=== PATIENT | male | born 1970 | race Caucasian/White ===

== ENCOUNTER 2021-11-14 08:51 | Emergency (ER) | payer OTHER ==
[2021-11-14 08:57] VITALS: BP 120/78; PULSE 58; TEMP 97.8; BMI 22.9
[2021-11-14] MEDS ORDERED: TETRACAINE 0.5% OPHTH SOLN 2 ML BOTTLE ONE (09:04)
[2021-11-14] MEDS ORDERED: FLUORESCEIN NA 1 EA STRIP ONE (09:04)
== END 2021-11-14 09:45 | disposition home or self-care (01) ==
LOC: JERFT 08:51
DX: T15.12XA Foreign body in conjunctival sac, left eye, initial encounter (principal)
CPT/HCPCS: 99283-25

== ENCOUNTER 2022-04-10 10:06 | Inpatient (IN) | payer OTHER ==
[2022-04-10 11:24] LABS: BASO % 0.1 % (0-2.0); HEMATOCRIT 27.4 % (35.4-49); HEMOGLOBIN 9.6 GM/dL (11.7-16.9); LYMPH % 6.9 % (8-40); MEAN CELL VOLUME 85.9 fl (80-96); MEAN PLT VOLUME 7.5 fl (7.5-11.1); MONO % 3.2 % (3.8-10.2); NEUT % 89.8 % (42.8-82.8); PLATELET COUNT 331 10^3/uL (134-434); RBC 3.19 M/mm3 (4.00-5.60); WHITE BLOOD COUNT 13.5 K/mm3 (4.0-10.0)
[2022-04-10 11:30] LABS: INR 1.1 (0.83-1.09); PROTHROMBIN TIME (PATIENT) 12.7 SEC (9.7-13.0)
[2022-04-10 11:33] LABS: ACTIVATED PTT 24.6 SECONDS (25.2-36.5)
[2022-04-10] MEDS ORDERED: methaDONE HCL 10 MG TABLET (FOR DETOX USE ONLY) PO ONE (11:36)
[2022-04-10 11:56] LABS: ALBUMIN 3.3 g/dl (3.4-5.0); BLOOD UREA NITROGEN 29.5 mg/dL (7-18); CALCIUM 8.9 mg/dL (8.5-10.1); MAGNESIUM 2.2 mg/dL (1.8-2.4)
[2022-04-10 11:59] LABS: CREATININE 0.7 mg/dL (0.55-1.3)
[2022-04-10] MEDS ORDERED: methaDONE HCL 10 MG TABLET ONE (12:00)
[2022-04-10 12:01] LABS: BILIRUBIN,TOTAL 0.8 mg/dL (0.2-1); TOT PROT 6.3 g/dl (6.4-8.2)
[2022-04-10 12:04] LABS: LACTIC ACID 2.5 mmol/L (0.4-2.0)
[2022-04-10] MEDS ORDERED: PANTOPRAZOLE 40 MG TABLET PO ONE ×2 (14:03→14:20)
[2022-04-10] MEDS ORDERED: SODIUM CHLORIDE 0.9% 500 ML INFUS.BAG IV ONE (14:05)
[2022-04-10] MEDS ORDERED: ERYTHROMYCIN *INJECTION* 500 MG VIAL IVPB STA ×2 (16:24→16:48)
[2022-04-10] MEDS ORDERED: PANTOPRAZOLE SODIUM 80 MG in SODIUM CHLORIDE 100 ML IVPB SCH (16:30)
[2022-04-10] MEDS: DEXTROSE 5%-NORMAL SALINE 1,000 ML IV SCH (17:11)
[2022-04-10] MEDS ORDERED: PANTOPRAZOLE SODIUM 160 MG in SODIUM CHLORIDE 290 ML IVPB SCH (17:30)
[2022-04-10] MEDS ORDERED: NALOXONE HCL 0.4 MG/ML VIAL IVPUSH ONE (21:39)
[2022-04-10] MEDS ORDERED: PANTOPRAZOLE SODIUM 40 MG VIAL IVPUSH SCH (22:00)
[2022-04-10 23:45] LABS: BASO % 0.3 % (0-2.0); EOS % 0.7 % (0-4.5); HEMATOCRIT 21.4 % (35.4-49); HEMOGLOBIN 7.4 GM/dL (11.7-16.9); LYMPH % 16.7 % (8-40); MCH 29.8 pg (25.7-33.7); MCHC 34.7 g/dl (32.0-35.9); MEAN PLT VOLUME 7.4 fl (7.5-11.1); MONO % 7.3 % (3.8-10.2); PH,URINE 5.5 (5.0-8.0); PLATELET COUNT 251 10^3/uL (134-434); RBC 2.49 M/mm3 (4.00-5.60); RDW 13.6 % (11.9-15.9); URINE APPEARANCE CLEAR; URINE BILIRUBIN NEGATIVE (NEGATIVE); URINE COLOR YELLOW; URINE GLUCOSE (UA) NEGATIVE (NEGATIVE); URINE KETONE NEGATIVE (NEGATIVE); URINE LEUK ESTERASE NEGATIVE (NEGATIVE); URINE NITRITE NEGATIVE (NEGATIVE); URINE PROTEIN NEGATIVE (NEGATIVE); URINE UROBILINOGEN 0.2 mg/dL (0.2-1.0); WHITE BLOOD COUNT 11.8 K/mm3 (4.0-10.0)
[2022-04-11 04:08] VITALS: BMI 20.2
[2022-04-11] MEDS: DEXTROSE 5%-NORMAL SALINE 1,000 ML IV SCH ×2 (05:12→15:15)
[2022-04-11] MEDS ORDERED: methaDONE HCL 10 MG TABLET PO SCH (06:00)
[2022-04-11 10:01] LABS: BASO % 0.6 % (0-2.0); LYMPH % 15.6 % (8-40); MCH 30.5 pg (25.7-33.7); MCHC 35.2 g/dl (32.0-35.9); MEAN CELL VOLUME 86.8 fl (80-96); MEAN PLT VOLUME 7.8 fl (7.5-11.1); MONO % 5.4 % (3.8-10.2); NEUT % 77.4 % (42.8-82.8); PLATELET COUNT 210 10^3/uL (134-434); RBC 2.31 M/mm3 (4.00-5.60); RDW 13.3 % (11.9-15.9); WHITE BLOOD COUNT 7.8 K/mm3 (4.0-10.0)
[2022-04-11 10:07] LABS: INR 1.1 (0.83-1.09); PROTHROMBIN TIME (PATIENT) 12.7 SEC (9.7-13.0)
[2022-04-11 10:10] LABS: ACTIVATED PTT 23.8 SECONDS (25.2-36.5)
[2022-04-11 10:23] LABS: CALCIUM 8.2 mg/dL (8.5-10.1)
[2022-04-11 10:24] LABS: ALBUMIN 2.9 g/dl (3.4-5.0); MAGNESIUM 2.2 mg/dL (1.8-2.4)
[2022-04-11 10:27] LABS: CREATININE 0.6 mg/dL (0.55-1.3); PHOSPHOROUS 2.5 mg/dL (2.5-4.9)
[2022-04-11 10:29] LABS: BILIRUBIN,TOTAL 0.7 mg/dL (0.2-1); TOT PROT 5.3 g/dl (6.4-8.2)
[2022-04-11 17:14] LABS: HEMATOCRIT 20.2 % (35.4-49); MCH 29.7 pg (25.7-33.7); MCHC 34.7 g/dl (32.0-35.9); MEAN CELL VOLUME 85.7 fl (80-96); MEAN PLT VOLUME 7.6 fl (7.5-11.1); PLATELET COUNT 177 10^3/uL (134-434); RBC 2.36 M/mm3 (4.00-5.60); RDW 14.2 % (11.9-15.9); WHITE BLOOD COUNT 6.6 K/mm3 (4.0-10.0)
[2022-04-11] MEDS: PANTOPRAZOLE 40 MG TABLET PO SCH (22:02)
[2022-04-12 08:37] LABS: BASO % 1.1 % (0-2.0); EOS % 2.4 % (0-4.5); HEMATOCRIT 24.2 % (35.4-49); HEMOGLOBIN 8.6 GM/dL (11.7-16.9); LYMPH % 22.5 % (8-40); MCH 30.2 pg (25.7-33.7); MCHC 35.4 g/dl (32.0-35.9); MEAN CELL VOLUME 85.2 fl (80-96); MEAN PLT VOLUME 7.9 fl (7.5-11.1); MONO % 7.6 % (3.8-10.2); NEUT % 66.4 % (42.8-82.8); PLATELET COUNT 171 10^3/uL (134-434); RBC 2.83 M/mm3 (4.00-5.60); RDW 13.8 % (11.9-15.9); WHITE BLOOD COUNT 4.8 K/mm3 (4.0-10.0)
[2022-04-12 08:51] LABS: ALBUMIN 2.7 g/dl (3.4-5.0); CALCIUM 8.1 mg/dL (8.5-10.1)
[2022-04-12 08:52] LABS: BLOOD UREA NITROGEN 8.8 mg/dL (7-18)
[2022-04-12 08:53] LABS: INR 1.09 (0.83-1.09); PROTHROMBIN TIME (PATIENT) 12.6 SEC (9.7-13.0)
[2022-04-12 08:54] LABS: MAGNESIUM 2.2 mg/dL (1.8-2.4)
[2022-04-12 08:55] LABS: BILIRUBIN,TOTAL 0.8 mg/dL (0.2-1); CREATININE 0.7 mg/dL (0.55-1.3)
[2022-04-12] MEDS: PANTOPRAZOLE 40 MG TABLET PO SCH ×2 (09:01→21:38)
[2022-04-12] MEDS ORDERED: ACETAMINOPHEN 325 MG TABLET (FP) PO PRN (10:59)
[2022-04-12] MEDS: DEXTROSE 5%-NORMAL SALINE 1,000 ML IV SCH (17:33)
[2022-04-13] MEDS: PANTOPRAZOLE 40 MG TABLET PO SCH (09:41)
[2022-04-13 09:50] VITALS: BP 108/52; PULSE 59; RESP 17; TEMP 98.1
[2022-04-13 11:21] LABS: BASO % 0.9 % (0-2.0); EOS % 2.6 % (0-4.5); HEMATOCRIT 26.1 % (35.4-49); HEMOGLOBIN 9.1 GM/dL (11.7-16.9); LYMPH % 19.3 % (8-40); MCH 30.2 pg (25.7-33.7); MCHC 34.7 g/dl (32.0-35.9); MEAN PLT VOLUME 7.9 fl (7.5-11.1); MONO % 8.2 % (3.8-10.2); PLATELET COUNT 230 10^3/uL (134-434); RDW 14.1 % (11.9-15.9); WHITE BLOOD COUNT 6.3 K/mm3 (4.0-10.0)
[2022-04-13 11:25] LABS: INR 0.98 (0.83-1.09); PROTHROMBIN TIME (PATIENT) 11.3 SEC (9.7-13.0)
[2022-04-13 11:45] LABS: CALCIUM 8.5 mg/dL (8.5-10.1)
[2022-04-13 11:46] LABS: ALBUMIN 3.1 g/dl (3.4-5.0); BLOOD UREA NITROGEN 6.2 mg/dL (7-18)
[2022-04-13 11:47] LABS: MAGNESIUM 2.1 mg/dL (1.8-2.4)
[2022-04-13 11:49] LABS: CREATININE 0.6 mg/dL (0.55-1.3)
[2022-04-13 11:51] LABS: BILIRUBIN,TOTAL 0.4 mg/dL (0.2-1); TOT PROT 5.8 g/dl (6.4-8.2)
== END 2022-04-13 18:22 | disposition home or self-care (01) | DRG 242 ==
LOC: JER 10:06 → JERBED 14:24 → J5S 04-11 02:44
PROVIDERS: ADMIT Internal Medicine; ATTEND Nurse Practitioner Family
PROC: 0DB58ZX Excision of Esophagus, Via Natural or Artificial Opening Endoscopic, Diagnostic (ICD-10-PCS; 2022-04-11)
PROC: 30233N1 Transfusion of Nonautologous Red Blood Cells into Peripheral Vein, Percutaneous Approach (ICD-10-PCS; principal; 2022-04-11 12:00)
DX: K22.6 Gastro-esophageal laceration-hemorrhage syndrome (principal); R55 Syncope and collapse; F11.20 Opioid dependence, uncomplicated; D62 Acute posthemorrhagic anemia; E87.2 Acidosis; K92.0 Hematemesis; K44.9 Diaphragmatic hernia without obstruction or gangrene
CPT/HCPCS: 36415; 36430; 71045-TC-FY; 74174-TC; 80053; 81003; 82272; 82607; 82728; 82746; 82962; 83540; 83550; 83605; 83690; 83735; 84100; 84443; 84484; 85025; 85027; 85362; 85379; 85610; 85730; 86850; 86900; 86901; 86922; 87040; 87086; 88305-TC; 93005; 93010; 94760; 97116-GP; 99285-25; C9803-CS; P9058; Q9967; U0003; U0005

== ENCOUNTER 2022-05-19 07:52 | Emergency (ER) | payer OTHER ==
[2022-05-19 08:13] VITALS: BMI 25.1
[2022-05-19 10:15] VITALS: BP 115/72; PULSE 85; RESP 18; TEMP 98
== END 2022-05-19 10:15 | disposition home or self-care (01) ==
LOC: JER 07:52
DX: T24.012A Burn of unspecified degree of left thigh, initial encounter (principal)
CPT/HCPCS: 99283-25

== ENCOUNTER 2022-08-06 04:22 | Day surgery (SDC) | payer OTHER ==
[2022-08-05 11:22] VITALS: BMI 21.2
[2022-08-06] MEDS ORDERED: KETAMINE HCL 500 MG/10 ML VIAL ONE (07:08)
[2022-08-06 09:25] VITALS: BP 104/69; PULSE 65; RESP 18; TEMP 98
== END 2022-08-06 09:25 | disposition home or self-care (01) ==
LOC: JASU-ENDO 04:22
PROVIDERS: ATTEND Internal Medicine Gastroenterology
PROC: 0DJD8ZZ Inspection of Lower Intestinal Tract, Via Natural or Artificial Opening Endoscopic (ICD-10-PCS; principal; 2022-08-06 08:00)
DX: Z12.11 Encounter for screening for malignant neoplasm of colon (principal); K57.30 Diverticulosis of large intestine without perforation or abscess without bleeding; K64.8 Other hemorrhoids

== ENCOUNTER 2022-08-11 04:35 | Day surgery (SDC) | payer OTHER ==
[2022-08-06 16:23] VITALS: BMI 21.2
[2022-08-11] MEDS ORDERED: SIMETHICONE 40 MG/0.6 ML BOTTLE ONE (07:30)
[2022-08-11 08:16] VITALS: TEMP 97.5
[2022-08-11 08:41] VITALS: BP 102/61; PULSE 60; RESP 12
== END 2022-08-11 08:43 | disposition home or self-care (01) ==
LOC: JASU-ENDO 04:35
PROVIDERS: ATTEND Internal Medicine Gastroenterology
PROC: 0DJ08ZZ Inspection of Upper Intestinal Tract, Via Natural or Artificial Opening Endoscopic (ICD-10-PCS; principal; 2022-08-11 08:00)
DX: K22.6 Gastro-esophageal laceration-hemorrhage syndrome (principal)